=== PATIENT | female | born 1965 | race Caucasian/White ===

== ENCOUNTER → 2023-04-17 15:33 | Outpatient (REF) | payer BC, SELFPAY | LOC: HWRAD 15:33 | PROVIDERS: ATTENDING PHYSICIAN Family Medicine | DX: Z78.0 Asymptomatic menopausal state (principal) | CPT/HCPCS: 77080 ==

== ENCOUNTER → 2024-05-05 16:01 | Outpatient (REF) | payer BC, SELFPAY | LOC: HWWDC 16:01 | PROVIDERS: ATTENDING PHYSICIAN Family Medicine | DX: Z12.31 Encounter for screening mammogram for malignant neoplasm of breast (principal) | CPT/HCPCS: 77063; 77067 ==

== ENCOUNTER 2024-08-24 06:22 | Day surgery (SDC) | payer BC, SELFPAY | END 2024-08-24 13:06 | disposition home or self-care (01) | LOC: GI 06:22 | PROVIDERS: ATTENDING PHYSICIAN Internal Medicine Gastroenterology | DX: Z12.11 Encounter for screening for malignant neoplasm of colon (principal); D12.0 Benign neoplasm of cecum; D12.3 Benign neoplasm of transverse colon; D12.5 Benign neoplasm of sigmoid colon; Q43.8 Other specified congenital malformations of intestine; K56.2 Volvulus; Z87.19 Personal history of other diseases of the digestive system; K64.0 First degree hemorrhoids | CPT/HCPCS: 45385; 45380; 88305 ==